=== PATIENT | female | born 1990 | race Two or more races ===

== ENCOUNTER → 2019-02-16 | Outpatient (CLI) | payer OTHER | END | disposition home or self-care (01) | LOC: PRENATAL 08:00 | DX: O28.1 Abnormal biochemical finding on antenatal screening of mother (principal) ==

== ENCOUNTER 2019-05-12 13:35 | Outpatient (CLI) | payer OTHER | END 2019-05-12 14:45 | disposition home or self-care (01) | LOC: PRENATAL 13:35 | DX: O26.843 Uterine size-date discrepancy, third trimester (principal) ==

== ENCOUNTER 2019-07-07 15:51 | Outpatient (CLI) | payer OTHER ==
[2019-07-07] MEDS ORDERED: PRENATAL TABLE1 EAC1 PO (16:49)
== END 2019-07-08 15:00 | disposition home or self-care (01) ==
LOC: OBS/DEL 15:51
DX: O41.03X0 Oligohydramnios, third trimester, not applicable or unspecified (principal)

== ENCOUNTER 2019-07-12 15:34 | Inpatient (IN) | payer OTHER ==
[~2019-07-12] VITALS: Ht 162.6 cm; Wt 132.0 kg
[~2019-07-12 15:34] MED LIST: PRENATAL TABLE1 EAC1 PO
== END 2019-07-15 13:53 | DRG 807 ==
LOC: OBS/DEL 15:34 → LDR 18:07 → OB/GYN 07-13 21:53
PROVIDERS: ADMIT Obstetrics & Gynecology
PROC: 4A1HXCZ Monitoring of Products of Conception, Cardiac Rate, External Approach (ICD-10-PCS; 2019-07-12)
PROC: 10E0XZZ Delivery of Products of Conception, External Approach (ICD-10-PCS; principal; 2019-07-13)
PROC: 0UQMXZZ Repair Vulva, External Approach (ICD-10-PCS; 2019-07-13)
PROC: 3E033VJ Introduction of Other Hormone into Peripheral Vein, Percutaneous Approach (ICD-10-PCS; 2019-07-13)
DX: O70.0 First degree perineal laceration during delivery (principal); Z37.0 Single live birth; Z3A.38 38 weeks gestation of pregnancy; Z22.330 Carrier of Group B streptococcus

== ENCOUNTER 2025-08-09 13:57 | Outpatient (CLI) | payer OTHER | END 2025-08-09 13:58 | disposition home or self-care (01) | LOC: PRENATAL 13:57 | PROVIDERS: ATTEND Obstetrics & Gynecology Maternal & Fetal Medicine | DX: O44.02 Complete placenta previa NOS or without hemorrhage, second trimester (principal); O09.522 Supervision of elderly multigravida, second trimester; O34.42 Maternal care for other abnormalities of cervix, second trimester; Z3A.23 23 weeks gestation of pregnancy ==